=== PATIENT | female | born 1995 | race Caucasian/White ===

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

== ENCOUNTER 2017-02-01 10:06 | Emergency (ER) | payer BC ==
[~2017-02-01] VITALS: Ht 167.6 cm; Wt 59.0 kg
[~2017-02-01 10:06] MED LIST changes: +ACETAZOLAMIDE250 M2 PO
--- NOTE | 2017-02-01 10:21 | [facility]gent Treatment Center Report ---
See Addendum History of Present Issue Date/Time Seen by Provider 02/01/17 1021 Visit Reason Pt arrived:Walked Presenting Problem:PT C/O RT EAR PAIN X1 WEEK Location if Accident: Onset of symptoms date/time:/ or onset unknown for:MEDICAL HX UNKNOWN Have you (or family members/close friends) recently traveled outside the [place]? N If Yes, where/when: Have you had exposure to infectious disease within the past month? TB? Other? Specify: c/o right ear pain. First started around one week ago but has been progressively getting worse. Now inside of ear swollen and very tender to touch. Occasional thin tesfaye discharge. Hurts to lay on right side. Hasn't taken or tried anything for symptoms. Denies headache, fever, dizziness. Source patient Exam Limitations no limitations ALLERGIES Coded Allergies: erythromycin base (BODY TURNS RED 12/04/16) Home Medications Reported Medications Acetazolamide (Acetazolamide 250MG Tablet) 250 MG PO BID History Medical History General CAD? No Angina: No NE: No Hypertension? No Hyperlipidemia? No CHF? No DVT? No PE? No COPD? No Asthma? No Anemia? No GERD? No Gastric ulcers? No GI Bleed? No Hernia? No Thyroid Problems? No Hypothyroidism? No CVA? No Seizures? No Diabetes? No Insulin Dependent: No Insulin Pump: No Home FSBS? No Renal Insuffiency? No UTI? No Stones? No BPH? No GB Disease: Yes Nephritic Syndrome? No Asplenia? No Hepatitis? No Sickle Cell Disease? No Arthritis? No Migraines? Yes Cataracts? No Glaucoma? No MRSA? No HIV? No TB? No Anxiety? No Depression? No Cancer? No More? No Immunization HX DT/Tetanus 1-4 Years Ago Pneumonia Refuses Surgical Hx Previous Surgery?Y Cholecystectomy Social History Smoking Hx Smoker: Never Smoker Tobacco: No Alcohol Alcohol: No Review of Systems All Other Systems Reviewed and Negative Constitutional see HPI, denies malaise Eyes denies drainage ENT see HPI, other (decreased hearing). denies: nose discharge, nose congestion, throat pain. Respiratory denies cough Gastrointestinal denies no symptoms reported Skin denies lumps, denies rash Psychiatric/Neurological see HPI Physical Exam Vital Signs Vital Signs Date Time Temp Pulse Resp B/P Pulse O2 O2 Flow FiO2 Ox Delivery Rate 02/01 1015 98.2 85 20 131/93 100 General Appearance normal appearance, no apparent distress Eye Exam - bilateral eye normal exam Ear, Nose, Throat normal pharynx, normal nares, left EAC and TM normal, right EAC significantly swollen and moist. Marked tenderness complicating exam. Unable to visualize TM due to tenderness as well as inflammation inside EAC. Evidence of crusted serous discharge below ear Neck non-tender, supple Respiratory Status No: respiratory distress, productive cough, non productive cough. Lung Sounds anterior: lungs clear. posterior: lungs clear. bilateral: lungs clear. Cardiovascular regular rate/rhythm, no peripheral edema, no murmur Neurologic alert, oriented x 3 Skin normal color, warm/dry Lymphatic no adenopathy Medical Decision Making LABS/Meds/Orders Pt receiving controlled substance in ED? No Departure Departure Time of Disposition 1026 Disposition DC Home or Self Care(routine) Clinical Impression Primary Impression: Right otitis externa Qualifiers: Otitis externa type: unspecified type Chronicity: acute Qualified Code: H60.501 - Unspecified acute noninfective otitis externa, right ear Condition STABLE Referrals KARYN HOANG (Family) Immediately for new or worsening symptoms, in 48 hours if no noticeable improvement,, in 10 days to ensure resolved. Patient Instructions DI for Otitis Externa Additional Instructions * Start antibiotic drops NATE and be sure to take as ordered for the FULL length of time although you should start to feel better in 24-48 hours. I will try to send antibiotic plus steroid to help w/ swelling but at times, insurance will not cover it until antibiotic alone is tried. If antibiotic is not helping, FU VERY important so we can try changing the medication. * Monitor Temp. Tylenol every 4 hours as needed no more than 5 times a day and/ or ibuprofen every 6 hours as needed (as long as your primary care doctor has told you that it is ok to take both) for fever/aches/pain. ER if fever no less than 101 despite Tylenol and ibuprofen * warm compress often helps when placed over ear * sleep elevated * keep ear canal dry. No swimming and cover ear while showering. Bacterial love warm, dark, moist places like your ear. * numbing ear drops are no longer available. Discharge Counseling Counseled pt/family regarding diagnosis, medications/RX, home care, follow up needs Prescriptions Current Visit Scripts CIPROFLOXACIN HCL/DEXAMETH (Ciprodex Otic Suspension) 4 DROP OT BID #1 BOT 7 days at 1039
[2017-02-01] MEDS ORDERED: CIPRODEX 0.3%-7.5 ML OT (10:29)
[2017-02-01 10:32] VITALS: BP 131/93
== END 2017-02-01 10:33 | disposition home or self-care (01) ==
LOC: UTC 10:06
DX: H60.501 Unspecified acute noninfective otitis externa, right ear (principal)